=== PATIENT | female | born 1970 | race Caucasian/White ===

== ENCOUNTER 2017-11-21 15:15 | Emergency (ER) | payer SELFPAY ==
[2017-11-21 15:23] VITALS: BP 145/74; BMI 29.8
--- NOTE | 2017-11-21 16:57 | DR.GENAD ---
HPI - PCP Primary Care Physician: colette - HPI Comment HPI Comment: HEADACHE ASSOCIATED WITH NAUSEA. NO FEVER. WORST HEADACHE EVER. NO FEVER. WORK IN [employer] ALL DAY LONG. - Complaint/Symptoms Chief Complaint Doctors Comments: SEVERE HEADACHE WITH NAUSEA TIME 2 DAYS. Chief Complaint:: Patient c/o severe headache with nausea x2 days. Self Treatment fo Chief Complaint: Tramadol - Nurses notes reviewed Nurses Notes Review: Yes - Source History Provided: Patient - Mode of Arrival Mode of Arrival: Ambulatory - Timing Onset of Chief Complaint: 11/20/17 Came on: Suddenly - Duration Duration: Constant Duration: Days - Severity Severity: Moderate PMH - PMH Past Medical History: No Past Surgical History: No - Family History History of Family Medical Conditions: Yes Family Medical History: Diabetes Mellitus, Hypertension - Social History Does patient currently use any type of tobacco product: Yes Have you used tobacco products in the last 12 months: Yes Type of Tobacco Use: Cigarettes Does any household member use tobacco: No Alcohol Use: None Do you use any recreational Drugs:: Yes (thc) Lives With: Family Lives Where: Home - infectious screening In the last 2 months have you had wt loss of >10#?: NO Have you had fever, night sweats or hemotysis?: No Have you traveled outside the country in the last 6 months?: No Isolation: Standard ROS - Review of Systems Constitutional: No Symptoms Reported Eyes: No Symptoms Reported ENTM: No Symptoms Reported Respiratoy: No Symptoms Reported Cardiovascular: No Symptoms Reported Gastrointestinal/Abdominal: No Symptoms Reported Genitourinary: No Symptoms Reported Neurological: Headache, Dizziness Musculoskeletal: Muscle Pain Integumentary: No Symptoms Reported Hematologic/Lymphatic: No Symptoms Reported Endocrine: No Symptoms Reported All Other Systems: Reviewed and Negative PE - Vital Signs Vitals: Temperature 97.6 F Pulse Rate 73 Respiratory Rate 18 Blood Pressure 145/74 O2 Sat by Pulse Oximetry 98 - General Limitations: No Limitations General Appearance: Alert - Head Head Exam: Normal Inspection - Eyes Eye exam: Normal Appearance - ENT ENT Exam: Normal External Ear Exam External Ear Exam: Normal External Inspection TM/Canal Exam: Bilateral Normal Nose Exam: Normal Nose Exam Mouth Exam: Normal Inspection Throat Exam: Normal Inspection - Neck Neck Exam: Trachea Midline - Chest Chest Inspection: Symmetric Chest Wall Rise - Respiratory Respiratory Exam: Normal Lung Sounds Bilat Respiratory Exam: Bilateral Clear to Auscultation - Cardiovascular Cardiovascular Exam: Regular Rate, Normal Rhythm, Normal Heart Sounds - Abdominal Exam Abdominal Exam: Normal Bowel Sounds, Soft. negative: Tenderness - Extremities Extremities Exam: Normal Inspection - Back Back Exam: Normal Inspection - Neurologic Neurological Exam: Alert, Oriented X3 - Psychiatric Psychiatric Exam: Normal Affect, Normal Mood - Skin Skin Exam: Normal Color MDM - Differential Diagnosis Differential Diagnosis: HEADACHE, SINUSITIS, HEAT EXUSTION Course - Treatment Treatment: SEE ORDERS. - Reevaluation 1st: Improved (IV FLUIDS IN ED WITH IV TORADOL.) - Education/Counseling Education/Counseling: Patient, Education Educated On: Diagnosis, Needs for Follow Up ROR - Labs Reviewed Laboratory Results Reviewed?: Yes Result Diagrams: 11/21/17 17:10 11/21/17 17:10 Laboratory: WBC 6.7 X10^3/uL (3.6-10.0) 11/21/17 17:10 RBC 4.71 X10^6/uL (3.5-5.4) 11/21/17 17:10 Hgb 15.4 g/dL (12.0-16.0) 11/21/17 17:10 Hct 43.7 % (36.0-47.0) 11/21/17 17:10 MCV 92.8 fL (80.0-100.0) 11/21/17 17:10 MCH 32.8 pg (27.0-34.0) 11/21/17 17:10 MCHC 35.3 g/dL (33.0-35.0) H 11/21/17 17:10 RDW 14.7 % (11.6-16.5) 11/21/17 17:10 Plt Count 215 X10^3/uL (150.0-450.0) 11/21/17 17:10 MPV 7.8 fL (7.4-11.0) 11/21/17 17:10 Neut % (Auto) 54.7 % (42.0-75.0) 11/21/17 17:10 Lymph % (Auto) 32.6 % (21.0-51.0) 11/21/17 17:10 [place]vert % (Auto) 9.1 % (0.0-13.0) 11/21/17 17:10 Eos % (Auto) 2.5 % (0.9-2.9) 11/21/17 17:10 Baso % (Auto) 1.1 % (0.2-1.0) H 11/21/17 17:10 Neut # (Auto) 3.6 x10^3/uL (2.2-4.8) 11/21/17 17:10 Lymph # (Auto) 2.2 X10^3/uL (1.3-2.9) 11/21/17 17:10 [place]vert # (Auto) 0.6 x10^3/uL (0.3-0.8) 11/21/17 17:10 Eos # (Auto) 0.2 x10^3/uL (0.0-0.2) 11/21/17 17:10 Baso # (Auto) 0.1 X10^3/uL (0.0-0.1) 11/21/17 17:10 Absolute Nucleated RBC 0.0 /100WBC 11/21/17 17:10 Sodium 139 mmol/L (136-145) 11/21/17 17:10 Corrected Sodium TNP 11/21/17 17:10 Potassium 4.0 mmol/L (3.5-5.1) 11/21/17 17:10 Chloride 102 mmol/L (98-107) 11/21/17 17:10 Carbon Dioxide 27.4 mmol/L (21-32) 11/21/17 17:10 BUN 13 mg/dL (7-18) 11/21/17 17:10 Creatinine 0.94 mg/dL (0.55-1.02) 11/21/17 17:10 Est GFR (MDRD) Af Amer > 60 (>60) 11/21/17 17:10 Est GFR (MDRD) Non-Af > 60 (>60) 11/21/17 17:10 Glucose 92 mg/dL (65-99) 11/21/17 17:10 Calcium 9.3 mg/dL (8.5-10.1) 11/21/17 17:10 Corrected Calcium TNP 11/21/17 17:10 Total Bilirubin 0.60 mg/dL (0.2-1.0) 11/21/17 17:10 AST 25 Units/L (15-37) 11/21/17 17:10 ALT 32 Units/L (12-78) 11/21/17 17:10 Alkaline Phosphatase 73 Units/L (46-116) 11/21/17 17:10 Total Protein 8.6 g/dL (6.4-8.2) H 11/21/17 17:10 Albumin 4.8 g/dL (3.4-5.0) 11/21/17 17:10 Globulin 3.8 g/dL (2.5-4.5) 11/21/17 17:10 Albumin/Globulin Ratio 1.3 Ratio (1.1-2.1) 11/21/17 17:10 - XRAY XRAY Interpreted by: Radiologist XRAY Findings: REPORT DISCUSS WITH PATIENT. - EKG Rhythm: NSR (EKG NOTED.) - Diagnosis Discharge Problem: Heat exhaustion Headache Qualifiers: Headache type: unspecified Headache chronicity pattern: acute headache Intractability: intractable Qualified Code(s): R51 - Headache - Discharge Plan Disposition: 01 HOME, SELF-CARE Condition: Stable Prescriptions: Ibuprofen [MOTRIN TAB 800 MG *] 800 mg PO Q8H PRN #20 tab PRN Reason: Pain/Inflammation - Follow ups/Referrals Follow ups/Referrals: [facility],None [Primary Care Provider] - 3 days JARED CHE [STAFF PHYSICIAN] - 3 days - Instructions Instructions: Heat Exhaustion Information, General Headache Without Cause, Easy -to-Read Additional Instructions: RETURN TO ED IF WORSE.
[2017-11-21] MEDS ORDERED: NS 1000 ML 1,000 ML IV ONE (17:00)
[2017-11-21] MEDS ORDERED: NS 1000 ML 1,000 ML ONE (17:18)
[2017-11-21 17:20] LABS: BASOPHILS # (AUTO) 0.1 X10^3/uL (0.0-0.1); BASOPHILS % (AUTO) 1.1 % (0.2-1.0); EOSINOPHILS # (AUTO) 0.2 x10^3/uL (0.0-0.2); EOSINOPHILS % (AUTO) 2.5 % (0.9-2.9); HEMATOCRIT 43.7 % (36.0-47.0); HEMOGLOBIN 15.4 g/dL (12.0-16.0); LYMPHOCYTES # (AUTO) 2.2 X10^3/uL (1.3-2.9); LYMPHOCYTES % (AUTO) 32.6 % (21.0-51.0); MEAN CORPUSCULAR HEMOGLOBIN 32.8 pg (27.0-34.0); MEAN CORPUSCULAR HGB CONC 35.3 g/dL (33.0-35.0); MEAN CORPUSCULAR VOLUME 92.8 fL (80.0-100.0); MEAN PLATELET VOLUME 7.8 fL (7.4-11.0); MONOCYTES # (AUTO) 0.6 x10^3/uL (0.3-0.8); MONOCYTES % (AUTO) 9.1 % (0.0-13.0); NEUTROPHILS # (AUTO) 3.6 x10^3/uL (2.2-4.8); NEUTROPHILS % (AUTO) 54.7 % (42.0-75.0); PLATELET COUNT 215 X10^3/uL (150.0-450.0); RED BLOOD COUNT 4.71 X10^6/uL (3.5-5.4); RED CELL DISTRIBUTION WIDTH 14.7 % (11.6-16.5); WHITE BLOOD COUNT 6.7 X10^3/uL (3.6-10.0)
[2017-11-21 17:29] LABS: BLOOD UREA NITROGEN 13 mg/dL (7-18); CARBON DIOXIDE 27.4 mmol/L (21-32); CHLORIDE 102 mmol/L (98-107); CREATININE 0.94 mg/dL (0.55-1.02); SODIUM 139 mmol/L (136-145); eGFR NON BLACK RACES > 60 (>60)
--- NOTE | 2017-11-21 17:29 | CT ---
CT HEAD WITHOUT CONTRAST CLINICAL HISTORY: 47-year-old female with headache for 2 days COMPARISON: None. TECHNIQUE: Multiple axial CT images were obtained from the skull base to the cranial vertex without t he administration of contrast. FINDINGS: No evidence of abnormal intra- or extra axial fluid collections, midline shift, or mass eff ect. Partially empty sella. Malik white differentiation is maintained. Age advanced cortical volume lo ss is present, with commensurate sulcal and ventricular prominence. The basal cisterns are normal in appearance. The paranasal sinuses, mastoid air cells, and tympanic cavities are clear. IMPRESSION: No acute intracranial process with age advanced volume loss. Reported By:
[2017-11-21 17:30] LABS: ALANINE AMINOTRANSFERASE 32 Units/L (12-78); ALBUMIN 4.8 g/dL (3.4-5.0); ALKALINE PHOSPHATASE 73 Units/L (46-116); ASPARTATE AMINO TRANSFERASE 25 Units/L (15-37); CALCIUM 9.3 mg/dL (8.5-10.1); TOTAL PROTEIN 8.6 g/dL (6.4-8.2); eGFR BLACK RACES > 60 (>60)
[2017-11-21] MEDS ORDERED: TORADOL 30 MG VIAL IVP ONE (17:49)
[2017-11-21] MEDS ORDERED: TORADOL 30 MG VIAL ONE (17:50)
== END 2017-11-21 18:04 | disposition home or self-care (01) ==
LOC: ER 15:26
DX: R51 Headache (principal); T67.5XXA Heat exhaustion, unspecified, initial encounter
CPT/HCPCS: 36415; 70450; 80053; 85025; 96365; 96374; 99283; 99284; J1885